=== PATIENT | female | born 1990 | race Caucasian/White ===

== ENCOUNTER 2017-07-04 11:23 | Emergency (ER) | payer MEDICAID, SELFPAY ==
[2017-07-04 12:38] LABS: Bilirubin Negative (Negative); Blood, Urine Negative (Negative); Clarity Clear (Clear); Glucose, Urine (Dipstick) Negative (Negative); Leukocyte Negative (Negative); Nitrite Negative (Negative); Protein, Urine (Dipstick) Negative (Neg-Trace); Urobilinogen 0.2 mg/dL (0.2-1.0)
[2017-07-04 12:39] LABS: Pregnancy Test - Urine (BHCG) Negative (Negative); Pregu Control Background? CLEAR/WHITE (CLR/WHITE); Pregu Control Bar Appear? YES (CONTROL BAR)
[2017-07-04] MEDS ORDERED: Cephalexin 500 MG CAP ONE (13:02)
[2017-07-04] MEDS ORDERED: Triple Antibiotic Oint 1 GM Packet ONE (13:02)
== END 2017-07-04 13:25 | disposition home or self-care (01) ==
LOC: MADERS 11:23
DX: L03.311 Cellulitis of abdominal wall (principal); F17.200 Nicotine dependence, unspecified, uncomplicated
CPT/HCPCS: 81003; 81025; 99283

== ENCOUNTER 2018-06-05 12:22 | Emergency (ER) | payer BC, MEDICAID ==
[2018-06-05 12:45] LABS: Bilirubin Negative (Negative); Blood, Urine Negative (Negative); Clarity Clear (Clear); Glucose, Urine (Dipstick) Negative (Negative); Leukocyte Trace (Negative); Nitrite Negative (Negative); Protein, Urine (Dipstick) Negative (Neg-Trace); Urobilinogen 0.2 mg/dL (0.2-1.0)
[2018-06-05 12:48] LABS: Bacteria/HPF Rare-Few HPF (None Seen); RBC/HPF 0-3 HPF (0-3); Squamous Epithelial 0-3 HPF (0-3); WBC/HPF 0-3 HPF (0-3)
[2018-06-05 12:49] LABS: Pregnancy Test - Urine (BHCG) Negative (Negative); Pregu Control Background? CLEAR/WHITE (CLR/WHITE); Pregu Control Bar Appear? YES (CONTROL BAR)
== END 2018-06-05 13:32 | disposition home or self-care (01) ==
LOC: MADERS 12:22
DX: R11.2 Nausea with vomiting, unspecified (principal); R19.7 Diarrhea, unspecified; F17.200 Nicotine dependence, unspecified, uncomplicated
CPT/HCPCS: 81003; 81015; 81025; 99284

== ENCOUNTER 2018-10-10 07:44 | Emergency (ER) | payer BC ==
[2018-10-10] MEDS ORDERED: Adacel (T-DAP) 0.5 ML SYRINGE ONE (08:11)
[2018-10-10] MEDS ORDERED: Ibuprofen 600 MG TAB ONE (08:11)
--- NOTE | 2018-10-10 08:34 | RAD ---
Exam:3 views right hand HISTORY: First metacarpal phalangeal joint injury. COMPARISON: None FINDINGS: No fracture. No cortical irregularity. No periosteal reaction. Joint spaces are preserved. IMPRESSION: No fracture.
== END 2018-10-10 08:50 | disposition home or self-care (01) ==
LOC: MADERS 07:44
DX: S63.601A Unspecified sprain of right thumb, initial encounter (principal); F17.210 Nicotine dependence, cigarettes, uncomplicated; V89.2XXA Person injured in unspecified motor-vehicle accident, traffic, initial encounter
CPT/HCPCS: 90471; 90715; Q4049

== ENCOUNTER 2021-06-29 14:30 | Emergency (ER) | payer BC ==
[2021-06-29] MEDS ORDERED: Ondansetron ODT 4 MG TAB ONE (15:18)
[2021-06-29 15:35] LABS: #Basophils 0.2 thou/uL (0.0-0.2); #Lymphocytes 1.2 thou/uL (1.20-3.40); #Monocytes 0.5 thou/uL (0.11-0.59); #Neutrophils 17.5 thou/uL (1.40-6.50); %Basophils 0.9 % (0.0-1.0); %Eosinophils 0.2 % (0.0-10.0); %Lymphocytes 6.1 % (21.0-51.0); %Monocytes 2.6 % (0.0-10.0); %Neutrophils 90.3 % (42.0-75.0); Hemoglobin 13.9 g/dL (12.0-16.0); Mean Corpuscular HGB CONC 34.7 g/dL (32.0-36.0); Mean Corpuscular Volume 95.1 fL (78.0-98.0); Platelet Count 320 thou/uL (130-400); RBC Distribution Width 12.2 % (11.5-14.5); Red Blood Cell (RBC) Count 4.21 mill/uL (4.20-5.40); White Blood Cell (WBC) Count 19.3 thou/uL (4.8-10.8)
[2021-06-29 15:50] LABS: ALT (SGPT) 13 U/L (8-55); AST (SGOT) 11 U/L (5-34); Albumin 4.4 g/dL (3.5-5.0); Alkaline Phosphatase 55 U/L (40-110); Anion Gap 17 mmol/L (10-20); BUN (Urea Nitrogen) 9 mg/dL (7.0-18.7); Bilirubin, Total 0.5 mg/dL (0.2-1.2); Calc. Creatinine Clearance 0 mL/min (70-130); Calcium 10.1 mg/dL (7.8-10.44); Carbon Dioxide 23 mmol/L (22-29); Chloride 105 mmol/L (98-107); Globulin 3.3 g/dL (2.4-3.5); Glucose 102 mg/dL (70-105); Lipase 4 U/L (8-78); Potassium 3.7 mmol/L (3.5-5.1); Protein, Total 7.7 g/dL (6.0-8.3); Sodium 141 mmol/L (136-145)
[2021-06-29 16:26] LABS: Bilirubin Small (Negative); Blood, Urine Negative (Negative); Glucose, Urine (Dipstick) Negative (Negative); Ketone, Urine > or equal to 80 mg/dL (Negative); Leukocyte Negative (Negative); Nitrite Negative (Negative); Protein, Urine (Dipstick) 100 mg/dL (Neg-Trace); Urobilinogen 0.2 mg/dL (Less than 2)
[2021-06-29 16:27] LABS: Clarity Cloudy (Clear); Specific Gravity, Urine 1.031 (1.002-1.036)
[2021-06-29 16:32] LABS: Bacteria/HPF Rare-Few HPF (None Seen); RBC/HPF None Seen HPF (0-3); WBC/HPF None Seen HPF (0-3)
[2021-06-29 16:33] LABS: Mucous/LPF 4+ LPF (<2+)
[2021-06-29] MEDS ORDERED: Sodium Chloride 0.9% 1,000 ML ONE (16:55)
[2021-06-29] MEDS ORDERED: Metoclopramide HCl 10 MG/2 ML VIAL ONE (16:55)
== END 2021-06-29 17:59 | disposition short-term general hospital (02) ==
LOC: MADERS 14:30
DX: O21.9 Vomiting of pregnancy, unspecified (principal); O99.111 Other diseases of the blood and blood-forming organs and certain disorders involving the immune mechanism complicating pregnancy, first trimester; D72.829 Elevated white blood cell count, unspecified; O99.331 Smoking (tobacco) complicating pregnancy, first trimester; F17.210 Nicotine dependence, cigarettes, uncomplicated; Z79.899 Other long term (current) drug therapy; Z3A.13 13 weeks gestation of pregnancy
CPT/HCPCS: 36415; 80053; 81003; 81015; 83690; 85025; 96374; J2765; J7050; Q0162